=== PATIENT | female | born 1975 | race Caucasian/White ===

== ENCOUNTER 2020-05-02 18:30 | Emergency (ER) | payer OTHER ==
--- NOTE | 2020-05-02 18:37 | PDOC ---
Rapid Medical Evaluation Medical Evaluation: 05/02/20 18:33 Pt with PMH of anxiety presents to the ER for chest pain starting around 6pm tonight. She was laying in bed trying to fall asleep when she felt a crushing chest pain that lasted approximately 2-5 minutes. States that the pain has gotten better, but she still has some epigastric discomfort. Exam: RRR, S1 S2 present (-) m/r/g Orders: EKG, labs Pt to proceed to the ER for further evaluation Discharge Disposition - Diagnosis Chest pain Qualifiers: Chest pain type: unspecified Qualified Code(s): R07.9 - Chest pain, unspecified - Referrals - Patient Instructions - Post Discharge Activity
[2020-05-02 18:44] VITALS: BP 132/77; PULSE 70; TEMP 97.2; BMI 23.3
[2020-05-02 19:08] LABS: BASO % 0.6 % (0-2.0); EOS % 0.8 % (0-4.5); HEMATOCRIT 40.7 % (32.4-45.2); HEMOGLOBIN 13.9 GM/dL (10.7-15.3); LYMPH % 36.4 % (8-40); MCH 33.7 pg (25.7-33.7); MEAN CELL VOLUME 99.1 fl (80-96); MEAN PLT VOLUME 7.8 fl (7.5-11.1); MONO % 7.4 % (3.8-10.2); NEUT % 54.8 % (42.8-82.8); PLATELET COUNT 296 K/MM3 (134-434); RBC 4.11 M/mm3 (3.60-5.2); RDW 12.6 % (11.6-15.6); WHITE BLOOD COUNT 8.8 K/mm3 (4.0-10.0)
[2020-05-02 19:44] LABS: MAGNESIUM 2.2 mg/dL (1.8-2.4)
[2020-05-02 19:54] LABS: EPI CELLS >36 /uL (0-25.1); HYALINE CASTS 1 /uL (0-3.1); PH,URINE 8.5 (5.0-8.0); URINE APPEARANCE CLEAR; URINE BACTERIA 1627 /uL (0-1359); URINE BILIRUBIN NEGATIVE (NEGATIVE); URINE COLOR YELLOW; URINE GLUCOSE (UA) NEGATIVE (NEGATIVE); URINE KETONE TRACE (NEGATIVE); URINE LEUK ESTERASE TRACE (NEGATIVE); URINE NITRITE NEGATIVE (NEGATIVE); URINE PROTEIN TRACE (NEGATIVE); URINE RBC 18 /uL (0-23.9); URINE WBC 15 /uL (0-25.8)
--- NOTE | 2020-05-02 20:38 | PDOC ---
History of Present Illness - General Chief Complaint: Chest Pain Stated Complaint: CHEST PAIN Time Seen by Provider: 05/02/20 18:37 History Source: Patient Exam Limitations: No Limitations - History of Present Illness Initial Comments: 05/02/20 20:39 44-year-old female presents to ED with complaints of sudden onset of chest tightness associated with shortness of breath. Patient states began to breathe fast then became sweaty and so called for her sister after going to the bathroom and rinsing her face with no relief. Patient states she was able to slow down her breathing and relax once her sister began speaking with her. Patient states has history of anxiety but normally does not get panic attacks in the daytime and normally only gets them at night needing to take Xanax 0.5 mg which she states she takes nightly. Patient also states intermittently has had to take alcohol along with her Xanax to help her fall asleep. Patient states was watching TV when symptoms began and denies any triggers. Patient is currently asymptomatic upon arrival. Patient denies any weight change, recent illness, recent travel, leg pain or fever. Presenting Symptoms: Chest Pain, Short of Breath Timing/Duration: reports: resolved prior to arrival Severity/Quality: reports: moderate (pressure) Location: reports: substernal Chest Pain Radiation: reports: back (thoracic) Activities at Onset: reports: none Prior Chest Pain/Cardiac Workup: reports: No prior chest pain Nitro Today/Relief: Yes: no nitro taken today Aspirin Received prior to arrival (Core Measure): Yes: no aspirin today Associated Symptoms: Yes: Chest Pain/pressure Past History - Travel History Traveled outside of the country in the last 30 days: No Close contact w/someone who was outside of country & ill: No - Medical History Allergies/Adverse Reactions: Allergies Allergy/AdvReac Type Severity Reaction Status Date / Time No Known Allergies Allergy Verified 05/02/20 18:35 - Psycho-Social/Smoking History Patient Lives Alone: No Lives with/in: spouse/SO () Smoking History: Never smoked - Substance Abuse Hx (Audit-C & DAST Scrn) How often the patient has a drink containing alcohol: Never Score: In Men: 4 or > Positive; In Women: 3 or > Positive: 0 Screen Result (Pos requires Nsg. Audit-10AR): Negative Review of Systems - Review of Systems Able to Perform ROS?: No Is the patient limited Moroccan proficient: No Constitutional: No: Symptoms Reported HEENTM: No: Symptoms Reported Respiratory: Yes: Shortness of Breath Cardiac (ROS): Yes: Chest Pain, Chest Tightness ABD/GI: No: Symptoms Reported : No: Symptoms Reported Musculoskeletal: No: Symptoms Reported Integumentary: No: Symptoms Reported Neurological: No: Symptoms reported Psychiatric: Yes: Anxiety Endocrine: No: Symptoms Reported Hematologic/Lymphatic: No: Symptoms Reported *Physical Exam - Vital Signs Last Vital Signs Temp Pulse Resp BP Pulse Ox 97.2 F L 70 20 132/77 100 05/02/20 18:35 05/02/20 18:35 05/02/20 18:35 05/02/20 18:35 05/02/20 18:35 - Physical Exam General Appearance: Yes: Nourished, Appropriately Dressed. No: Apparent Distress HEENT: positive: EOMI, ZITA. negative: Pale Conjunctivae Neck: positive: Normal Thyroid, Supple Respiratory/Chest: positive: Lungs Clear, Normal Breath Sounds. negative: Respiratory Distress, Accessory Muscle Use Cardiovascular: positive: Regular Rhythm, Regular Rate. negative: Murmur Gastrointestinal/Abdominal: positive: Soft. negative: Tenderness Extremity: positive: Normal Inspection Integumentary: positive: Normal Color, Warm, Moist Neurologic: positive: Motor Strength 5/5 (ambulatory) Heart Score/ECG Review - ECG Intrepretation Rhythm: Regular Rhythm (Normal sinus rhythm. Rate 62. Intervals are regular. No ST elevation QTC 406 ms.) ED Treatment Course - LABORATORY CBC & Chemistry Diagram: 05/02/20 18:50 - ADDITIONAL ORDERS Additional order review: Laboratory Results 05/02/20 05/02/20 18:55 18:50 Magnesium 2.2 Creatine Kinase 44 Troponin I < 0.02 Urine Color Yellow Urine Appearance Clear Urine pH 8.5 H Ur Specific [place] 1.019 Urine Protein Trace Urine Glucose (UA) Negative Urine Ketones Trace H Urine Blood Negative Urine Nitrite Negative Urine Bilirubin Negative Urine Urobilinogen 1.0 Ur Leukocyte Esterase Trace Urine WBC (Auto) 15 Urine RBC (Auto) 18 Urine Casts (Auto) 1 U Epithel Cells (Auto) >36 Urine Bacteria (Auto) 1627 05/02/20 18:50 RBC 4.11 MCV 99.1 H MCHC 34.0 RDW 12.6 MPV 7.8 Neutrophils % 54.8 Lymphocytes % 36.4 Monocytes % 7.4 Eosinophils % 0.8 Basophils % 0.6 Medical Decision Making - Medical Decision Making 05/02/20 20:41 CC: chest tightness and SOB [employer] lasting 5-6 minutes. Hx of anxiety and states similar s/s but not during the day. Exam: VSS, ekg NSR , lcta, No reproducible cp Plan: labs, cxr, ekg, 05/02/20 20:44 Laboratory Tests 05/02/20 05/02/20 05/02/20 18:50 18:50 18:55 WBC 8.8 Hgb 13.9 Hct 40.7 MCV 99.1 H Absolute Neuts (auto) 4.8 Magnesium 2.2 Creatine Kinase 44 Troponin I < 0.02 Urine Color Yellow Urine Appearance Clear Urine pH 8.5 H Ur Specific [place] 1.019 Urine Protein Trace Urine Glucose (UA) Negative Urine Ketones Trace H Urine Blood Negative Urine Nitrite Negative Urine Bilirubin Negative Urine Urobilinogen 1.0 Ur Leukocyte Esterase Trace Urine WBC (Auto) 15 Urine RBC (Auto) 18 Urine Casts (Auto) 1 Urine Bacteria (Auto) 1627 05/02/20 20:49 cxr - for acute pathology. Pt will be discharged home Discharge - Discharge Information Problems reviewed: Yes Clinical Impression/Diagnosis: Chest pain Qualifiers: Chest pain type: unspecified Qualified Code(s): R07.9 - Chest pain, unspecified Condition: Improved Disposition: HOME - Follow up/Referral Referrals: Ramirez Tate [Primary Care Provider] - - Patient Discharge Instructions Patient Printed Discharge Instructions: DI for Atypical Chest Pain Additional Instructions: At this time your lab work EKG and chest today chest x-ray were negative for acute pathology I do recommend follow-up with your primary care physician and notify them of today's visit as this may require further evaluation otherwise continue to take your medication for anxiety but do not mix with alcohol as you have mentioned - Post Discharge Activity
--- NOTE | 2020-05-03 09:19 | EKG ---
Test Reason : Blood Pressure : / mmHG Vent. Rate : 062 BPM Atrial Rate : 062 BPM P-R Int : 156 ms QRS Dur : 072 ms QT Int : 400 ms P-R-T Axes : 023 047 037 degrees QTc Int : 406 ms NORMAL SINUS RHYTHM NORMAL ECG NO PREVIOUS ECGS AVAILABLE Confirmed by MD LATISHA, RACH ([id number]) on 05/03/2020 9:19:13 AM Referred By: Confirmed By:RACH GOOD MD
== END 2020-05-02 21:23 | disposition home or self-care (01) ==
LOC: JER 18:30
DX: R07.9 Chest pain, unspecified (principal)
CPT/HCPCS: 36415; 71046-TC-FY; 81003; 82550; 83735; 84484; 85025; 93005; 93010; 99285-25